=== PATIENT | male | born 1980 | race African-American/Black ===

== ENCOUNTER 2017-02-17 07:15 | Emergency (ER) | payer OTHER ==
[~2017-02-17] VITALS: Ht 162.6 cm; Wt 108.9 kg
[~2017-02-17 07:15] MED LIST: CEPH-264 PO; GABA-586 PO; HYDR-971 PO; NAPR500T8 PO
[2017-02-17] MEDS ORDERED: IBUP200T77 PO (07:37)
--- NOTE | 2017-02-17 07:39 | PHYS DOC ---
Past Medical History Past Medical History: No Pertinent History Past Surgical History: No Surgical History Alcohol Use: Occasionally Drug Use: None Adult General Chief Complaint Chief Complaint: SORE THROAT HPI HPI 28-year-old male presenting to the emergency department today with upper URI symptoms. Complains of sore throat dental pain runny nose and a minimally productive cough. This is been present for about 2-3 days. He has used Vicks rub and ibuprofen with mild relief. He denies any sinus pain. He denies any chest pain or shortness of breath. He denies abdominal pain. Review of systems is negative for fevers chills abdominal pain nausea vomiting. All other review of systems is negative unless otherwise noted in history of present illness. ED course: 28-year-old male presenting with viral upper story tract infection symptoms. Vital signs show mild hypertension otherwise unremarkable. Pertinent physical examination findings show no evidence of peritonsillar abscess. Lungs are clear to auscultation bilaterally. Minimal erythema of pharynx. Otherwise unremarkable. Strep screen sent and negative. The patient was then discharged home to follow-up with his primary. The patient was then discharged home in stable condition to follow up with their primary care physician over the next 2- 3 days. They were to return if their symptoms worsened or if they were concerned for any reason. [id number] discharge instructions and return precautions were given. Patient's questions were answered to their satisfaction. Patient is comfortable plan. Review of Systems Review of Systems SEE ABOVE. Allergies Allergies Allergies Coded Allergies Type Severity Reaction Last Updated Verified No Known Drug Allergies 12/26/13 No Physical Exam Physical Exam SEE ABOVE Constitutional: Well developed, well nourished, no acute distress, non-toxic appearance. HENT: Normocephalic, atraumatic, bilateral external ears normal, oropharynx moist, no oral exudates, nose normal. Eyes: PERRLA, EOMI, conjunctiva normal, no discharge. [] Neck: Normal range of motion, no tenderness, supple, no stridor. Cardiovascular:Heart rate regular rhythm, no murmur [] Lungs & Thorax: Bilateral breath sounds clear to auscultation Abdomen: Bowel sounds normal, soft, no tenderness, no masses, no pulsatile masses. [] Skin: Warm, dry, no erythema, no rash. Back: No tenderness, no CVA tenderness. [] Extremities: No tenderness, no cyanosis, no clubbing, ROM intact, no edema. Neurologic: Alert and oriented X 3, normal motor function, normal sensory function, no focal deficits noted. Psychologic: Affect normal, judgement normal, mood normal. [] Current Patient Data Vital Signs Vital Signs Date Time Temp Pulse Resp B/P (MAP) Pulse Ox O2 Delivery O2 Flow Rate FiO2 02/17/17 07:24 98.7 88 18 98 Room Air 98.7 EKG EKG [] Radiology/Procedures Radiology/Procedures [] Course & Med Decision Making Course & Med Decision Making Pertinent Labs and Imaging studies reviewed. (See chart for details) [] Dragon Disclaimer Dragon Disclaimer This electronic medical record was generated, in whole or in part, using a voice recognition dictation system. Departure Departure Impression: Primary Impression: Sore throat Disposition: HOME, SELF-CARE Condition: STABLE Referrals: NO PCP (PCP) COLBY CARRILLO MD Patient Instructions: Sore Throat, [id number], Viral and Bacterial Pharyngitis, [id number] Additional Instructions: Thank you for allowing us to participate in your care today. Followup with your primary care physician in 3 days if your symptoms do not improve. Call your Primary Doctor tomorrow and inform them of your visit today. If you do not have a primary care provider you can ask for a list of our primary care providers. Return to the emergency department you have any new or concerning findings. This should be evaluated by the primary care physician and any necessary consulting services for continued management within a few days after discharge. Return to emergency room if you have any new or concerning symptoms including but not limited to fever, chills, nausea, vomiting, intractable pain, any new rashes, chest pain, shortness of air, uncontrolled bleeding, difficulty breathing, and/or vision loss. Scripts Ibuprofen (IBUPROFEN) 200 Mg Tablet 200 MG PO PRN Q6HRS Y for INFLAMMATION, #30 TAB Prov: LISA WALKER MD 02/17/17 LISA WALKER MD Feb 17, 2017 07:39
[2017-02-17 08:04] VITALS: BP 140/87
[2017-02-17 10:52] LABS: NEGATIVE OBC STREP NEG; POSITIVE OBC STREP POS
== END 2017-02-17 08:08 | disposition home or self-care (01) ==
LOC: ER 07:15
DX: J02.9 Acute pharyngitis, unspecified (principal); K08.89 Other specified disorders of teeth and supporting structures; R05 Cough; R09.89 Other specified symptoms and signs involving the circulatory and respiratory systems
CPT/HCPCS: 87070; 87880; 99284

== ENCOUNTER 2017-07-03 06:34 | Emergency (ER) | payer OTHER | END 2017-07-03 07:05 | disposition home or self-care (01) | LOC: ER 06:34 | DX: J02.9 Acute pharyngitis, unspecified (principal); R09.81 Nasal congestion; R50.9 Fever, unspecified | CPT/HCPCS: 99283 ==

== ENCOUNTER 2018-04-29 07:29 | Emergency (ER) | payer OTHER ==
[~2018-04-29] VITALS: Ht 167.6 cm; Wt 108.9 kg
[~2018-04-29 07:29] MED LIST changes: +IBUP200T77 PO
[2018-04-29 07:38] VITALS: BP 127/92
[2018-04-29] MEDS ORDERED: IBUP-1060 PO (07:50)
[2018-04-29] MEDS ORDERED: AZIT250T6 PO (07:50)
--- NOTE | 2018-04-29 07:59 | PHYS DOC ---
Past Medical History Past Medical History: Other Additional Past Medical Histor: Hx. of seizures -"Grown out of them." Past Surgical History: No Surgical History Alcohol Use: Occasionally Drug Use: None Adult General Chief Complaint Chief Complaint: SORE THROAT HPI HPI Patient is a 38 year old male who presents with sore throat. Patient has been ill over the last 2 days. He complains of some throat pain with swallowing. He has no swelling or difficulty swallowing. He has had some chills but no documented fever. No cough. No upper airway congestion. No neck stiffness, headaches, rashes. He is otherwise a healthy 38-year-old male. Review of Systems Review of Systems Constitutional: Denies fever Eyes: Denies change in visual acuity HENT: Denies nasal congestion Respiratory: Denies cough or shortness of breath Cardiovascular: No additional information not addressed in HPI GI: Denies abdominal pain Integument: Denies rash Neurologic: Denies headache All other systems were reviewed and found to be within normal limits, except as documented in this note. Current Medications Current Medications Current Medications Medications (Trade) Dose Ordered Sig/Radha Start Time Stop Time Status Last Admin Dose Admin Azithromycin (Zithromax) 500 mg 1X ONCE 04/29/18 08:00 04/29/18 08:01 04/29/18 07:53 500 MG Dexamethasone (Decadron) 8 mg 1X ONCE 04/29/18 08:00 04/29/18 08:01 04/29/18 07:53 8 MG Allergies Allergies Allergies Coded Allergies Type Severity Reaction Last Updated Verified No Known Drug Allergies 12/26/13 No Physical Exam Physical Exam Constitutional: Well developed, well nourished, no acute distress, non-toxic appearance HENT: Normocephalic, atraumatic, bilateral external ears normal, oropharynx moist, no oral exudates, nose normal, posterior oral pharynx is injected. There are small punctate areas that appear as exudates. No tonsillar hypertrophy. No swelling. Eyes: PERRLA, EOMI, conjunctiva normal Neck: Normal range of motion, no tenderness Cardiovascular:Heart rate regular rhythm Lungs & Thorax: Bilateral breath sounds clear to auscultation Skin: Warm, dry, no erythema, no rash Neurologic: Alert and oriented X 3 Psychologic: Affect normal Current Patient Data Vital Signs Vital Signs Date Time Temp Pulse Resp B/P (MAP) Pulse Ox O2 Delivery O2 Flow Rate FiO2 11/14/18 07:38 98.6 86 18 127/92 (104) 97 Room Air 98.6 EKG EKG [] Radiology/Procedures Radiology/Procedures [] Course & Med Decision Making Course & Med Decision Making Pertinent Labs and Imaging studies reviewed. (See chart for details) Patient is evaluated in the emergency department for sore throat over the last 3 days. He is nontoxic in appearance. His exam is suspicious for strep. Patient is given azithromycin in the ER, the first dose. He is prescribed the same for use at home. He is given a single dose of Decadron in the emergency room also. Discharge home with ibuprofen to use as needed for pain. Encouraged to follow- up with his primary care doctor or return to the emergency department for any new or worsening symptoms. Dragon Disclaimer Dragon Disclaimer This electronic medical record was generated, in whole or in part, using a voice recognition dictation system. Departure Departure Impression: Primary Impression: Sore throat Disposition: 01 HOME, SELF-CARE Condition: GOOD Referrals: NO PCP (PCP) Patient Instructions: Sore Throat Scripts Ibuprofen (IBUPROFEN) 800 Mg Tablet 800 MG PO PRN TID PRN for PAIN, #20 TAB take with food or milk to avoid upsetting stomach Prov: LOTUS KAPLAN DO 04/29/18 Azithromycin (AZITHROMYCIN TABLET) 250 Mg Tablet 250 MG PO DAILY for ANTI-BIOTIC for 4 Days, #4 TAB 0 Refills Prov: LOTUS KAPLAN DO 04/29/18 LOTUS KAPLAN DO Apr 29, 2018 07:59
[2018-04-29] MEDS ORDERED: DEXAMETHASONE 4 MG TABLET PO ONE (08:00)
[2018-04-29] MEDS ORDERED: AZITHROMYCIN 250 MG TABLET. PO ONE (08:00)
== END 2018-04-29 07:57 | disposition home or self-care (01) ==
LOC: ER 07:29
DX: J02.9 Acute pharyngitis, unspecified (principal)
CPT/HCPCS: 99283; J8540; Q0144

== ENCOUNTER 2018-09-21 07:05 | Emergency (ER) | payer OTHER ==
[~2018-09-21] VITALS: Ht 167.6 cm; Wt 112.5 kg
[~2018-09-21 07:05] MED LIST changes: +AZIT250T6 PO; -GABA-586 PO; +GABA300C18 PO; +HYDR-3164 PO; -HYDR-971 PO; +IBUP-1060 PO
[2018-09-21 07:17] VITALS: BP 149/90
--- NOTE | 2018-09-21 07:43 | PHYS DOC ---
Past Medical History Past Medical History: Other Additional Past Medical Histor: Hx. of seizures -"Grown out of them." Past Surgical History: No Surgical History Alcohol Use: Occasionally Drug Use: None Adult General Chief Complaint Chief Complaint: KNEE PAIN [facility] HPI Patient is a 38 year old male who presents with complaining of left knee pain. Patient complaining of left knee pain for the last 2 or 3 days as a constant pain that getting worse with walking and bearing weight. Patient denies injury or overusing his knee. Patient states he had right ankle pain few weeks ago that last about one week with the same pain. Patient states he had subjective fever couple days ago that resolved spontaneously. Patient states he took ibuprofen last night with partial improvement of his pain. Review of Systems Review of Systems Constitutional: Denies fever or chills [] Eyes: Denies change in visual acuity, redness, or eye pain [] HENT: Denies nasal congestion or sore throat [] Respiratory: Denies cough or shortness of breath [] Cardiovascular: No additional information not addressed in HPI [] GI: Denies abdominal pain, nausea, vomiting, bloody stools or diarrhea [] : Denies dysuria or hematuria [] Musculoskeletal: Denies back pain, reports joint pain [] Integument: Denies rash or skin lesions [] Neurologic: Denies headache, focal weakness or sensory changes [] Endocrine: Denies polyuria or polydipsia [] All other systems were reviewed and found to be within normal limits, except as documented in this note. Current Medications Current Medications Current Medications Medications (Trade) Dose Ordered Sig/Radha Start Time Stop Time Status Last Admin Dose Admin Ibuprofen (Motrin) 800 mg 1X ONCE 09/21/18 07:45 09/21/18 07:46 DC 09/21/18 07:51 800 MG Allergies Allergies Allergies Coded Allergies Type Severity Reaction Last Updated Verified No Known Drug Allergies 12/26/13 No Physical Exam Physical Exam Constitutional: Well developed, well nourished, mild distress, non-toxic appearance. [] HENT: Normocephalic, atraumatic. Eyes: PERRLA, EOMI, conjunctiva normal, no discharge. [] Neck: Normal range of motion, no tenderness, supple, no stridor. [] Cardiovascular:Heart rate regular rhythm, no murmur [] Lungs & Thorax: Bilateral breath sounds clear to auscultation [] Extremities: Left knee without deformity, mild edema and warmness and painful range of motion, no neurovascular deficit. Neurologic: Alert and oriented X 3, normal motor function, normal sensory function, no focal deficits noted. [] Psychologic: Affect normal, judgement normal, mood normal. [] Current Patient Data Vital Signs Vital Signs Date Time Temp Pulse Resp B/P (MAP) Pulse Ox O2 Delivery O2 Flow Rate FiO2 09/21/18 07:17 98.1 78 20 149/90 (109) 98 Room Air 98.1 EKG EKG [] Radiology/Procedures Radiology/Procedures [][facility] [address] [place] [address] IMAGING REPORT Signed PATIENT: BHUPINDER WHEATLEY ACCOUNT: [id number] : 1980 LOCATION: ER AGE: 38 SEX: M EXAM STATUS: REG ER ORD. PHYSICIAN: MAMTA SMITH MD REASON: pain without injury PROCEDURE: KNEE LEFT 4V 4 view left knee study Clinical indications: Left knee pain and swelling for 2 days. No known injury. FINDINGS: No acute fracture or dislocation or lytic process is seen. No significant arthritic change is evident. The patella is normally aligned. IMPRESSION: No acute fracture. Electronically signed by: Min Petty MD (09/21/2018 8:06 AM) [facility] DICTATED and SIGNED BY: MIN PETTY MD DATE: 09/21/18805 Course & Med Decision Making Course & Med Decision Making Pertinent Imaging studies reviewed. (See chart for details) Evaluation of patient in ER showed 38-year-old male patient with complaining of left knee pain without injury. Patient had marked tenderness and firmness of his knee with unremarkable x-ray. Patient had history of ankle pain without injury a few weeks ago. There is a consideration of possible gouty arthritis if patient continued to have arthralgia in different joints and needs for more evaluation. Dragon Disclaimer Dragon Disclaimer This electronic medical record was generated, in whole or in part, using a voice recognition dictation system. Departure Departure Impression: Primary Impression: Strain of left knee Disposition: HOME, SELF-CARE (at 0814) Condition: IMPROVED Referrals: NO PCP (PCP) Patient Instructions: Ankle Sprain, Arthralgia Additional Instructions: Apply ice on the affected area Follow-up with your primary care physician in 3-5 days Return to ER if not getting better Scripts Hydrocodone/Apap 5-325 (NORCO 5-325 TABLET) 1 Each Tablet 1 TAB PO PRN Q6HRS PRN for PAIN, #10 TAB 0 Refills Prov: MAMTA SMITH MD 09/21/18 Naproxen (NAPROSYN) 500 Mg Tablet 1 TAB PO BID for pain, #20 TAB Prov: MAMTA SMITH MD 09/21/18 Problem Qualifiers Primary Impression: Strain of left knee Encounter type: initial encounter Qualified Codes: S86.912A - Strain of unspecified muscle(s) and tendon(s) at lower leg level, left leg, initial encounter MAMTA SMITH MD Sep 21, 2018 07:43
[2018-09-21] MEDS ORDERED: IBUPROFEN 400 MG TABLET. PO ONE (07:45)
--- NOTE | 2018-09-21 08:10 | RAD ---
4 view left knee study Clinical indications: Left knee pain and swelling for 2 days. No known injury. FINDINGS: No acute fracture or dislocation or lytic process is seen. No significant arthritic change is evident. The patella is normally aligned. IMPRESSION: No acute fracture. Electronically signed by: Arie Petty MD (09/21/2018 8:06 AM) [facility]
[2018-09-21] MEDS ORDERED: HYDR-3164 PO (08:16)
[2018-09-21] MEDS ORDERED: NAPR-683 PO (08:16)
== END 2018-09-21 08:23 | disposition home or self-care (01) ==
LOC: ER 07:05
DX: S86.912A Strain of unspecified muscle(s) and tendon(s) at lower leg level, left leg, initial encounter (principal); R50.9 Fever, unspecified; M25.571 Pain in right ankle and joints of right foot; X58.XXXA Exposure to other specified factors, initial encounter; Y93.89 Activity, other specified; Y92.89 Other specified places as the place of occurrence of the external cause; Y99.8 Other external cause status
CPT/HCPCS: 73564; 99283

== ENCOUNTER 2019-03-16 12:45 | Emergency (ER) | payer OTHER ==
[~2019-03-16] VITALS: Ht 167.6 cm; Wt 112.5 kg
[~2019-03-16 12:45] MED LIST changes: +NAPR-683 PO
[2019-03-16] MEDS ORDERED: DEXAMETHASONE 4 MG TABLET PO STA (13:40)
[2019-03-16 13:52] VITALS: BP 143/85
--- NOTE | 2019-03-16 13:55 | PHYS DOC ---
Past Medical History Past Medical History: Other Additional Past Medical Histor: Hx. of seizures -"Grown out of them." Past Surgical History: No Surgical History Alcohol Use: Occasionally Drug Use: None Adult General Chief Complaint Chief Complaint: SORE THROAT HPI HPI Patient is a 39 year old male who presents to the ER stating that he's been having congestion, and runny nose accompanied by sore throat. The patient states that he's also been coughing up green mucus. The patient denies any fever. Denies any past medical history. Review of Systems Review of Systems Constitutional: Denies fever or chills [] Eyes: Denies change in visual acuity, redness, or eye pain [] HENT: Reports nasal congestion and sore throat [] Respiratory: Reports cough denies shortness of breath [] Cardiovascular: No additional information not addressed in HPI [] GI: Denies abdominal pain, nausea, vomiting, bloody stools or diarrhea [] : Denies dysuria or hematuria [] Musculoskeletal: Denies back pain or joint pain [] Integument: Denies rash or skin lesions [] Neurologic: Denies headache, focal weakness or sensory changes [] Endocrine: Denies polyuria or polydipsia [] Complete systems were reviewed and found to be within normal limits, except as documented in this note. Current Medications Current Medications Current Medications Medications (Trade) Dose Ordered Sig/Radha Start Time Stop Time Status Last Admin Dose Admin Dexamethasone (Decadron) 10 mg 1X STAT 03/16/19 13:40 03/16/19 13:41 DC 03/16/19 13:56 10 MG Allergies Allergies Allergies Coded Allergies Type Severity Reaction Last Updated Verified No Known Drug Allergies 12/26/13 No Physical Exam Physical Exam Constitutional: Well developed, well nourished, no acute distress, non-toxic appearance. [] HENT: Normocephalic, atraumatic, bilateral external ears normal, tonsils are 2+/4, oropharynx moist, no oral exudates, nose turbinates inflamed bilateral.[] Eyes: PERRLA, EOMI, conjunctiva normal, no discharge. [] Neck: Normal range of motion, no tenderness, supple, no stridor. [] Cardiovascular:Heart rate regular rhythm, no murmur [] Lungs & Thorax: Bilateral breath sounds clear to auscultation [] Abdomen: Bowel sounds normal, soft, no tenderness, no masses, no pulsatile masses. [] Skin: Warm, dry, no erythema, no rash. [] Back: No tenderness, no CVA tenderness. [] Extremities: No tenderness, no cyanosis, no clubbing, ROM intact, no edema. [] Neurologic: Alert and oriented X 3, normal motor function, normal sensory function, no focal deficits noted. [] Psychologic: Affect normal, judgement normal, mood normal. [] Current Patient Data Vital Signs Vital Signs Date Time Temp Pulse Resp B/P (MAP) Pulse Ox O2 Delivery O2 Flow Rate FiO2 03/16/19 13:52 98.4 78 18 143/85 (104) 97 Room Air 98.4 EKG EKG [] Radiology/Procedures Radiology/Procedures [] Course & Med Decision Making Course & Med Decision Making Pertinent Labs and Imaging studies reviewed. (See chart for details) Appears to be having allergic rhinitis. Will give Decadron to help sore throat in ER. Will recommend, Zyrtec, Mucinex, and Afrin. Dragon Disclaimer Dragon Disclaimer This electronic medical record was generated, in whole or in part, using a voice recognition dictation system. Departure Departure Impression: Primary Impression: Allergic rhinitis Disposition: HOME, SELF-CARE Condition: STABLE Referrals: NO PCP (PCP) Patient Instructions: Allergic Rhinitis Additional Instructions: Thank you for visiting [facility]. We appreciate you trusting us with your care. If any additional problems come up don't hesitate to return to isit us. Please follow up with your primary care provider so they can plan additional care if needed and know about the problem that you had. If symptoms worsen come back to the Emergency Department. Any concerning symptoms that start such as chest pain, shortness of air, weakness or numbness on one side of the body, running high fevers or any other concerning symptoms return to the ER. Please take Zyrtec, and Mucinex over the counter per label instructions. Scripts Oxymetazoline Hcl (AFRIN) 30 Ml [place] 30 ML NS BID PRN for CONGESTION for 3 Days, #1 SPRAY Please do not use more than 3 days as it can cause rebound congestion. Prov: COLBY BERNABE ACCOUNT MANAGEMENT ASSISTANT 03/16/19 Problem Qualifiers Primary Impression: Allergic rhinitis Allergic rhinitis trigger: unspecified Allergic rhinitis seasonality: unspecified Qualified Codes: J30.9 - Allergic rhinitis, unspecified COLBY BERNABE APRN Mar 16, 2019 13:55
[2019-03-16] MEDS ORDERED: OXYM30SP NS (14:01)
[2019-03-17] MEDS ORDERED: KETO5DRO4 EACHEYE (10:18)
[2019-03-17] MEDS ORDERED: NAPR-514 PO (10:31)
== END 2019-03-16 14:06 | disposition home or self-care (01) ==
LOC: ER 12:45
DX: J30.9 Allergic rhinitis, unspecified (principal)
CPT/HCPCS: 99282; J8540

== ENCOUNTER 2019-03-17 08:30 | Emergency (ER) | payer OTHER ==
[~2019-03-17] VITALS: Ht 167.6 cm; Wt 108.9 kg
[~2019-03-17 08:30] MED LIST changes: +OXYM30SP NS
[2019-03-17 09:50] VITALS: BP 163/88
[2019-03-17] MEDS ORDERED: diphenhydrAMINE HCL 25 MG CAPSULE PO ONE (10:15)
[2019-03-17] MEDS ORDERED: KETOTIFEN FUMARATE 0.025% OPHTH SOLUTION BOTTLE. OU ONE (10:15)
[2019-03-17] MEDS ORDERED: KETO5DRO4 EACHEYE (10:18)
--- NOTE | 2019-03-17 10:18 | PHYS DOC ---
Past Medical History Past Medical History: No Pertinent History, Other Additional Past Medical Histor: Hx. of seizures -"Grown out of them." (SONAL MICHAEL APRN) Past Surgical History: No Surgical History (SONAL MICHAEL APRN) Alcohol Use: Occasionally Drug Use: None (SONAL MICHAEL APRN) Adult General Chief Complaint Chief Complaint: EYE PROBLEMS HPI HPI Patient is a 39 year old male who presents with right eye itching and swelling. Seen here yesterday for sore throat, dx with allergic rhinitis. Prescribed Afrin, no nasal congestion and is not taking.Sore throat better. Driving in car today with windows up and developed right eye itching and swelling. no pain or change in vision. no redness or pain to the eye lids. no fevers. Does not wear correction. He is resting in no distress (SONAL MICHAEL APRN) Review of Systems Review of Systems Constitutional: Denies fever or chills [] Eyes: Denies change in visual acuity, redness, or eye pain []c/o right eye itching and swelling HENT: Denies nasal congestion. c/o mild sore throat [] Respiratory: Denies cough or shortness of breath [] Cardiovascular: No additional information not addressed in HPI [] Musculoskeletal: Denies back pain or joint pain [] Integument: Denies rash or skin lesions [] Neurologic: Denies headache, focal weakness or sensory changes [] Endocrine: Denies polyuria or polydipsia [] All other systems were reviewed and found to be within normal limits, except as documented in this note. (SONAL MICHAEL APRN) Current Medications Current Medications Current Medications Medications (Trade) Dose Ordered Sig/Radha Start Time Stop Time Status Last Admin Dose Admin Diphenhydramine HCl (Benadryl) 50 mg 1X ONCE 03/17/19 10:15 03/17/19 10:16 DC 03/17/19 10:17 50 MG Ketotifen Fumarate (Zaditor) 1 drop 1X ONCE 03/17/19 10:15 03/17/19 10:16 DC 03/17/19 10:28 1 DROP (MARTINA ROWE MD) Allergies Allergies Allergies Coded Allergies Type Severity Reaction Last Updated Verified No Known Drug Allergies 12/26/13 No (MARTINA ROWE MD) Physical Exam Physical Exam Constitutional: Well developed, well nourished, no acute distress, non-toxic appearance. [] HENT: Normocephalic, atraumatic, bilateral external ears normal, oropharynx moist, mild posterior pharynx redness, no swelling or exudate, no uvular shift, normal voice, no oral exudates, nose normal. [] Eyes: PERRLA, EOMI, no discharge. [] Right eye chemosis, itching, no lid pain redness or swelling Neck: Normal range of motion, no tenderness, supple, no stridor. [] Cardiovascular:Heart rate regular rhythm, no murmur [] Lungs & Thorax: Bilateral breath sounds clear to auscultation [] Skin: Warm, dry, no erythema, no rash. [] Extremities: No tenderness, no cyanosis, no clubbing, ROM intact, no edema. [] Neurologic: Alert and oriented X 3, normal motor function, normal sensory function, no focal deficits noted. [] Psychologic: Affect normal, judgement normal, mood normal. [] (SONAL MICHAEL APRN) Current Patient Data Vital Signs Vital Signs Date Time Temp Pulse Resp B/P (MAP) Pulse Ox O2 Delivery O2 Flow Rate FiO2 03/17/19 09:50 97.7 86 16 163/88 (113) 98 Room Air 97.7 (MARTINA ROWE MD) EKG EKG [] (SONAL MICHAEL APRN) Radiology/Procedures Radiology/Procedures [] (SONAL MICHAEL APRN) Impressions: Right allergic conjunctivitis, pharyngitis (SONAL MICHAEL APRN) Course & Med Decision Making Course & Med Decision Making Pertinent Labs and Imaging studies reviewed. (See chart for details) []Right eye itching and swelling, + chemosis, allergic conjunctivitis. Normal vision, 20/30 bilaterally. no FB sensation, no pain Benadryl and zaditor. Cool compress. Naproxen for sore throat Educated on home care fu and reasons to return to the ER (SONAL MICHAEL APRN) Course & Med Decision Making Staff Physician Addendum: I was working in the ER during the course of this patient's visit. I was available for consultation as needed, but I was not directly involved in the care of this patient. (MARTINA ROWE MD) Dragon Disclaimer Dragon Disclaimer This electronic medical record was generated, in whole or in part, using a voice recognition dictation system. (SONAL MICHAEL APRN) Departure Departure Impression: Primary Impression: Allergic conjunctivitis of right eye Disposition: HOME, SELF-CARE Condition: STABLE Referrals: NO PCP (PCP) [facility] Patient Instructions: Allergic Conjunctivitis, [id number] Additional Instructions: allergic reaction, do not scratch for rub the eye cool compress Benadryl over the counter, will cause sedation, do not work or drive on the medication Once daily non drowsy, Claritin or zyrtec eye drops twice a day as needed for itching for 2-3days Call the clinic for follow up, return for any concerns or worsening symptoms Scripts Naproxen (NAPROXEN) 500 Mg Tablet 1 TAB PO BID, #5 TAB 1 Refill Prov: SONAL MICHAEL APRN 03/17/19 Ketotifen Fumarate (ZADITOR) 5 Ml Drops 1 DROP EACHEYE BID for 7 Days, #5 ML Prov: SONAL MICHAEL APRN 03/17/19 SONAL MICHAEL APRN Mar 17, 2019 10:18 MARTINA ROWE MD Mar 18, 2019 08:01
[2019-03-17] MEDS ORDERED: NAPR-514 PO (10:31)
== END 2019-03-17 10:33 | disposition home or self-care (01) ==
LOC: ER 08:30
DX: H10.11 Acute atopic conjunctivitis, right eye (principal)
CPT/HCPCS: 99283; Q0163